=== PATIENT | male | born 1960 | race Caucasian/White ===

== ENCOUNTER 2017-11-09 10:48 | Emergency (ER) | payer OTHER ==
--- NOTE | 2017-11-09 12:08 | RAD ---
Indication: Left leg edema. Duplex Doppler sonography of the deep venous system of the left lower extremity deep venous system was performed. Bilaterally the common femoral veins appear patent and compressible. Left proximal greater saphenous vein, proximal deep femoral vein, femoral vein, popliteal vein, posterior tibial veins and peroneal veins appear patent and compressible.Limited evaluation of peroneal veins IMPRESSION: NO EVIDENCE OF DEEP VENOUS THROMBOSIS IS IDENTIFIED.
--- NOTE | 2017-11-09 12:13 | ED ---
Lower Extremity - HPI Summary HPI Summary: Patient is a 57-year-old male who presents emergency department for redness, pain and swelling to his left leg 5 days. Pt. states that he noticed a small red area to his left medial ankle that progressively got larger. Patient states that redness, increasingly worse today. Past medical history obesity, alcohol use, smoking, high blood pressure. Patient notes that he has had chills and subjective fever. He denies nausea or vomiting. Symptoms are moderate in severity. Touching area makes symptoms worse. Nothing makes symptoms better. - History of Current Complaint Chief Complaint: EDSoftTissueLowExtr Stated Complaint: LT LEG SWELLING/REDNESS Time Seen by Provider: 11/09/17 12:12 Hx Obtained From: Patient Pain Intensity: 7 - Allergies/Home Medications Allergies/Adverse Reactions: Allergies Allergy/AdvReac Type Severity Reaction Status Date / Time Penicillins Allergy Unknown Verified 11/09/17 12:28 Reaction Details Home Medications: Home Medications Lisinopril TAB* [Prinivil TAB*] 5 mg PO DAILY 11/09/17 [History Confirmed ] PMH/Surg Hx/FS Hx/Imm Hx Previously Healthy: Yes Infectious Disease History: No Infectious Disease History: Denies: Traveled Outside the [place] in Last 30 Days - Social History Occupation: Employed Full-time Lives: With Family Review of Systems Positive: Chills Gastrointestinal: Negative Negative: Abdominal Pain, Vomiting, Diarrhea, Nausea Positive: Other - Redness, swelling and pain to left lower leg All Other Systems Reviewed And Are Negative: Yes Physical Exam Triage Information Reviewed: Yes Vital Signs On Initial Exam: Initial Vitals Temp Pulse Resp BP Pulse Ox 96.5 F 95 18 152/81 94 11/09/17 11:09 11/09/17 11:09 11/09/17 11:09 11/09/17 11:09 11/09/17 11:09 Vital Signs Reviewed: Yes Appearance: Positive: Well-Appearing - Patient sitting on bed in no acute distress. Talkative. Skin: Positive: Warm, Dry Head/Face: Positive: Normal Head/Face Inspection Eyes: Positive: Normal, EOMI Neck: Positive: Supple Respiratory/Lung Sounds: Positive: Clear to Auscultation, Breath Sounds Present Cardiovascular: Positive: Normal, RRR Musculoskeletal: Positive: Other - Extensive, diffuse erythema and warmth noted just at a right ankle extending below right knee. Small healing wound noted to the lateral aspect. No areas of induration or fluctuance. Good palpable pedal pulse. Neurological: Positive: Normal, CN Intact II-III Psychiatric: Positive: Affect/Mood Appropriate Diagnostics - Vital Signs Vital Signs Temp Pulse Resp BP Pulse Ox 11/09/17 11:09 96.5 F 95 18 152/81 94 - Laboratory Result Diagrams: 11/09/17 12:42 11/09/17 12:42 Lab Statement: Any lab studies that have been ordered have been reviewed, and results considered in the medical decision making process. Lower Extremity Course/Dx - Course Course Of Treatment: Patient presenting with erythema and warmth to left lower extremity. He is afebrile with stable vital signs. Venous duplex is negative for DVT or acute findings, reading per radiology. Given extent of cellulitis we 'll give a dose of IV Rocephin and obtain basic labs. CBC shows normal WBC. CMP unremarkable. CRP elevated. Results discussed with pt. Will attempt out pt. treat since VS are normal and labs look good. Keflex QID rx. Advised to Follow up in the [facility] clinic in 2-3 days. To elevate leg and apply warm compresses. To return to ER for increased redness, fever, vomiting or if concerned. Pt. understands and agrees with plan. - Diagnoses Differential Diagnosis/HQI/PQRI: Positive: Cellulitis, DVT Provider Diagnoses: Cellulitis Discharge - Sign-Out/Discharge Documenting (check all that apply): Patient Departure - Discharge Plan Condition: Good Disposition: HOME Prescriptions: Cephalexin CAP* [Keflex CAP*] 500 mg PO QID #40 cap Patient Education Materials: Cellulitis (ED) Referrals: [facility] [Outside] No Primary Care Phys,NOPCP [Primary Care Provider] - Additional Instructions: Schedule a follow up appointment with your PCP for recheck in 2-3 days Take antibiotic as directed Elevate leg and apply warm compresses Tylenol or Motrin for pain as directed Return to ER for increased redness, fever, vomiting or if concerned - Billing Disposition and Condition Condition: GOOD Disposition: Home
[2017-11-09] MEDS ORDERED: cefTRIAXone(*) 2 GM in NS 0.9% 100 ML* 100 ML IVPB ONE (12:32)
[2017-11-09 12:49] LABS: ABS Basophils 0.1 10^3/ul (0-0.2); ABS Eosinophils 0.1 10^3/ul (0-0.6); ABS Lymphocytes 1.1 10^3/ul (1.0-4.8); ABS Monocytes 1.1 10^3/ul (0-0.8); ABS Neutrophils 7.9 10^3/ul (1.5-7.7); ABS Nucleated RBC 0.1 10^3/ul; Eosinophil % 1.3 % (0-6); Hematocrit 43 % (42-52); Hemoglobin 14.9 g/dl (14.0-18.0); Lymphocyte % 10.4 % (25-47); Mean Corpuscular HGB Conc 35 g/dl (31-36); Mean Corpuscular Hemoglobin 31 pg (27-31); Mean Corpuscular Volume 88 fL (80-94); Mean Platelet Volume 7.7 um3 (7.4-10.4); Nucleated Red Blood Cells % 0.6; Platelet Count 184 10^3/ul (150-450); Red Blood Count 4.88 10^6/ul (4.00-5.40); Red Cell Distribution Width 14 % (10.5-15); White Blood Count 10.2 10^3/ul (3.5-10.8)
[2017-11-09 13:19] LABS: EGFR Non-African American 104.9 (>60)
[2017-11-09 14:07] VITALS: BP 130/78
== END 2017-11-09 14:06 | disposition home or self-care (01) ==
LOC: ED 10:48
DX: L03.116 Cellulitis of left lower limb (principal); R22.42 Localized swelling, mass and lump, left lower limb; E66.9 Obesity, unspecified; Z72.89 Other problems related to lifestyle; Z88.0 Allergy status to penicillin
CPT/HCPCS: 36415; 80053; 85025; 86140; 96374; 99282; J0696

== ENCOUNTER 2018-08-28 09:15 | Emergency (ER) | payer BC, OTHER ==
--- NOTE | 2018-08-28 10:00 | ED ---
Lower Extremity - HPI Summary HPI Summary: A 58 y/o male presents to [facility] with a chief complaint of possible cellulitis to his left lower leg since the afternoon of 08/26/18. He reports a Hx of the same 10 months ago. He says that there is a little pain and swelling, rating his pain as a 4/10 in severity. He denies any fevers, chills or SOB. He denies a Hx of DM, or HLD. He had colon cancer 10 years ago and is in remission. He has a Hx of HTN and is on medications. He reports some smoking and alcohol use. His FHx if unknown because he is adopted. - History of Current Complaint Chief Complaint: EDExtremityLower Stated Complaint: POSS CELLULITES-PER PATIENT Time Seen by Provider: 08/28/18 09:49 Hx Obtained From: Patient Mechanism Of Injury: Unknown Onset of Pain: Days Onset/Duration: Days Severity Initially: Moderate Severity Currently: Moderate Pain Intensity: 4 Pain Scale Used: 0-10 Numeric Timing: Constant Location: Is Discrete @ - Lower left lower extremity Character Of Pain: Unable To Describe Associated Signs And Symptoms: Positive: Swelling, Redness. Negative: Fever Aggravating Factor(s): Nothing Alleviating Factor(s): Nothing - Allergies/Home Medications Allergies/Adverse Reactions: Allergies Allergy/AdvReac Type Severity Reaction Status Date / Time Penicillins Allergy Unknown Verified 08/28/18 09:21 Reaction Details PMH/Surg Hx/FS Hx/Imm Hx Endocrine/Hematology History: Denies: Hx Diabetes Cardiovascular History: Reports: Hx Hypertension Infectious Disease History: No Infectious Disease History: Denies: Traveled Outside the [place] in Last 30 Days - Family History Known Family History: Positive: Unknown - adopted - Social History Alcohol Use: Daily Substance Use Type: Reports: Marijuana Substance Use Comment - Amount & Last Used: used last wednesday Smoking Status (MU): Current Every Day Smoker Review of Systems Negative: Fever, Chills Negative: Shortness Of Breath Positive: Other - positive: lower LLE swelling and redness Positive: Other - positive: redness lower LLE All Other Systems Reviewed And Are Negative: Yes Physical Exam - Summary Physical Exam Summary: VITAL SIGNS: Reviewed. GENERAL: Patient is a well-developed and nourished MALE who is lying comfortable in the stretcher. Patient is not in any acute respiratory distress. HEAD AND FACE: No signs of trauma. No ecchymosis, hematomas or skull depressions. No sinus tenderness. EYES: PERRLA, EOMI x 2, No injected conjunctiva, no nystagmus. EARS: Hearing grossly intact. Ear canals and tympanic membranes are within normal limits. MOUTH: Oropharynx within normal limits. NECK: Supple, trachea is midline, no adenopathy, no JVD, no carotid bruit, no c- spine tenderness, neck with full ROM. CHEST: Symmetric, no tenderness at palpation. LUNGS: Clear to auscultation bilaterally. No wheezing or crackles. CVS: Regular rate and rhythm, S1 and S2 present, no murmurs or gallops appreciated. ABDOMEN: Soft, non-tender. No signs of distention. No rebound, no guarding, and no masses palpated. Bowel sounds are normal. EXTREMITIES: LLE swelling, erythema and increase in temperature from the knee down. NEURO: Alert and oriented x 3. No acute neurological deficits. Speech is normal and follows commands. SKIN: Dry and warm. Triage Information Reviewed: Yes Vital Signs On Initial Exam: Initial Vitals Temp Pulse Resp BP Pulse Ox 97.0 F 76 16 143/75 97 08/28/18 09:17 08/28/18 09:17 08/28/18 09:17 08/28/18 09:17 08/28/18 09:17 Vital Signs Reviewed: Yes Diagnostics - Vital Signs Vital Signs Temp Pulse Resp BP Pulse Ox 08/28/18 09:35 75 144/84 96 08/28/18 09:17 97.0 F 76 16 143/75 97 - Laboratory Result Diagrams: 08/28/18 10:17 08/28/18 10:17 Lab Statement: Any lab studies that have been ordered have been reviewed, and results considered in the medical decision making process. - Ultrasound No standard instances Ultrasound Interpretation Completed By: Radiologist Summary of Ultrasound Findings: Venous doppler study impression: NO LEFT LOWER EXTREMITY DEEP VEIN THROMBOSIS. ED physician has reviewed this imaging report. Lower Extremity Course/Dx - Course Assessment/Plan: A 58 y/o male presents to [facility] with a chief complaint of possible cellulitis to his left lower leg since the afternoon of 08/26/18. He reports a Hx of the same 10 months ago. He says that there is a little pain and swelling, rating his pain as a 4/10 in severity. He denies any fevers, chills or SOB. He denies a Hx of DM, or HLD. He had colon cancer 10 years ago and is in remission. He has a Hx of HTN and is on medications. He reports some smoking and alcohol use. His FHx if unknown because he is adopted. Blood test results without any significant abnormality except for platelet count 249, ESR is 45, sodium 133, chloride 99, glucose 113, uric acid 7.8, CRP is 169. Lower extremity ultrasound impression: No left lower extremity deep vein thrombosis. In the ED course and the patient was given IV fluids and Rocephin for the cellulitis. At this time the patient is feeling better therefore the patient will be discharged home with follow-up with primary care physician. The patient will be given a prescription for Bactrim for 10 days. He was given instructions to return to the emergency department if the symptoms worsen. The patient understands and agrees. He is hemodynamically stable alert and oriented 3. - Diagnoses Provider Diagnoses: Cellulitis Discharge - Sign-Out/Discharge Documenting (check all that apply): Patient Departure - DC Patient Received Moderate/Deep Sedation with Procedure: No - Discharge Plan Condition: Stable Disposition: HOME Prescriptions: Cephalexin CAP* [Keflex CAP*] 500 mg PO QID #10 cap Patient Education Materials: Cellulitis (DC) Referrals: [facility] [Outside] (2-3 days) Additional Instructions: FOLLOW UP WITH YOUR PRIMARY CARE PROVIDER WITHIN 2-3 DAYS. RETURN TO THE ED FOR ANY WORSENING OR NEW SYMPTOMS. - Billing Disposition and Condition Condition: STABLE Disposition: Home - Attestation Statements Document Initiated by Chanell: Yes Documenting Scribe: Matt Jade Provider For Whom Chanell is Documenting (Include Credential): Bogdan Freeman MD Scribe Attestation: IMatt scribed for Bogdan Freeman MD on 08/29/18 at 2020. Scribe Documentation Reviewed: Yes Provider Attestation: The documentation as recorded by the Matt lucio accurately reflects the service I personally performed and the decisions made by me, Bogdan Freeman MD Status of Scribe Document: Viewed
[2018-08-28] MEDS ORDERED: cefTRIAXone(*) 1 GM in NS 0.9% 50 ML* 50 ML IVPB ONE (10:10)
[2018-08-28] MEDS ORDERED: cefTRIAXone(*) 1 GM ADVAN/BAG ONE (10:19)
[2018-08-28 10:35] LABS: Hematocrit 42 % (42-52); Hemoglobin 14.4 g/dL (14.0-18.0); Mean Corpuscular HGB Conc 34 g/dL (31-36); Mean Corpuscular Hemoglobin 31 pg (27-31); Mean Corpuscular Volume 89 fL (80-94); Platelet Count 149 10^3/uL (150-450); Red Blood Count 4.71 10^6 /uL (4.18-5.48); Red Cell Distribution Width 14 % (10-15); White Blood Count 8.7 10^3/uL (3.5-10.8)
[2018-08-28 10:46] LABS: Albumin 3.7 g/dL (3.2-5.2); Albumin/Globulin Ratio 1.2 (1-3); BUN/Creatinine Ratio 17.2 (8-20); C Reactive Protein 159.66 mg/L (<8.01); Calcium 8.8 mg/dL (8.6-10.3); EGFR African American 109.8 (>60); EGFR Non-African American 90.8 (>60); Globulin 3.1 g/dL (2-4); Potassium 3.9 mmol/L (3.5-5.0); Total Bilirubin 0.5 mg/dL (0.2-1.0); Total Protein 6.8 g/dL (6.4-8.9); Uric Acid 7.8 mg/dL (4.4-7.6)
[2018-08-28 10:55] LABS: ABS Basophils 0.1 10^3/ul (0-0.2); ABS Eosinophils 0.2 10^3/ul (0-0.6); ABS Lymphocytes 1.1 10^3/ul (1.0-4.8); ABS Monocytes 1.1 10^3/ul (0-0.8); ABS Neutrophils 6.3 10^3/ul (1.5-7.7); Lymphocyte % 12.1 %; Nucleated Red Blood Cells % 0.1
[2018-08-28 11:41] LABS: Erythrocyte Sed Rate 45 mm/Hr (0-19)
[2018-08-28 12:54] VITALS: BP 107/57
== END 2018-08-28 13:06 | disposition home or self-care (01) ==
LOC: ED 09:15
DX: L03.116 Cellulitis of left lower limb (principal); R60.0 Localized edema; Z88.0 Allergy status to penicillin; F17.210 Nicotine dependence, cigarettes, uncomplicated; Z85.038 Personal history of other malignant neoplasm of large intestine
CPT/HCPCS: 36415; 80053; 83605; 84550; 85025; 85060; 85652; 86140; 96374; 99283; J0696

== ENCOUNTER 2018-11-16 14:13 | Inpatient (IN) | payer BC ==
[2018-11-16 15:49] LABS: ABS Eosinophils 0.1 10^3/ul (0-0.6); ABS Lymphocytes 1.1 10^3/ul (1.0-4.8); ABS Monocytes 1.1 10^3/ul (0-0.8); ABS Neutrophils 8.7 10^3/ul (1.5-7.7); Eosinophil % 1.3 %; Hematocrit 49 % (42-52); Hemoglobin 16.8 g/dL (14.0-18.0); Lymphocyte % 9.9 %; Mean Corpuscular HGB Conc 34 g/dL (31-36); Mean Corpuscular Hemoglobin 31 pg (27-31); Mean Corpuscular Volume 90 fL (80-94); Mean Platelet Volume 7.8 fL (7.4-10.4); Nucleated Red Blood Cells % 0.2; Platelet Count 185 10^3/uL (150-450); Red Blood Count 5.48 10^6 /uL (4.18-5.48); Red Cell Distribution Width 14 % (10-15); White Blood Count 11.1 10^3/uL (3.5-10.8)
[2018-11-16 15:55] LABS: Albumin 4.6 g/dL (3.2-5.2); Calcium 9.5 mg/dL (8.6-10.3); Potassium 3.9 mmol/L (3.5-5.0); Total Bilirubin 0.6 mg/dL (0.2-1.0)
[2018-11-16 16:01] LABS: Albumin/Globulin Ratio 1.4 (1-3); BUN/Creatinine Ratio 16.3 (8-20); C Reactive Protein 126.95 mg/L (<8.01); EGFR African American 111.3 (>60); Globulin 3.3 g/dL (2-4); Total Protein 7.9 g/dL (6.4-8.9)
[2018-11-16] MEDS ORDERED: cefTRIAXone(*) 2 GM in NS 0.9% 100 ML* 100 ML IVPB ONE (16:52)
[2018-11-16] MEDS ORDERED: Acetaminophen TAB* 325 MG PO ONE (17:09)
--- NOTE | 2018-11-16 17:12 | ED ---
Lower Extremity - HPI Summary HPI Summary: Patient is a 58 y/o M w/ Hx of left leg cellulitis who presents to [facility] with complaints of left leg redness and pain. He states that Sx onset yesterday. He reports pain is at his calf area. He denies SOB but endorses fever and chills, which he reports onset eight hours before redness. Patient states that he had two prior episodes of cellulitis this year. He notes the present episode is mild compared to prior episodes. He has HTN which is controlled with medications. Patient denies Hx of diabetes and HLD. Patient uses tobacco, alcohol and marijuana. He is adopted and FMHx is unknown. Home medications and allergies are reviewed. - History of Current Complaint Chief Complaint: EDExtremityLower Stated Complaint: CELLULITES PER PT Time Seen by Provider: 11/16/18 16:14 Hx Obtained From: Patient Onset of Pain: Days Onset/Duration: Days Severity Currently: Moderate Pain Intensity: 5 Pain Scale Used: 0-10 Numeric Timing: Lasting Days Location: Is Discrete @ - LLE Associated Signs And Symptoms: Positive: Swelling, Redness, Fever, Other - calf pain - Allergies/Home Medications Allergies/Adverse Reactions: Allergies Allergy/AdvReac Type Severity Reaction Status Date / Time Penicillins Allergy Unknown Verified 08/28/18 09:21 Reaction Details Home Medications: Home Medications Hydrocodone/Acetaminophen [[place] 7.5-325 Tablet] 1 each PO TID 11/16/18 [ History Confirmed 11/16/18] Lisinopril/HCTZ 20/25(NF) [Zestoretic 20/25(NF)] 1 tab PO DAILY 11/16/18 [ History Confirmed 11/16/18] PMH/Surg Hx/FS Hx/Imm Hx Endocrine/Hematology History: Reports: Hx Diabetes Cardiovascular History: Reports: Hx Hypercholesterolemia, Hx Hypertension Infectious Disease History: No Infectious Disease History: Denies: Traveled Outside the [place] in Last 30 Days - Family History Known Family History: Positive: Unknown - adopted - Social History Alcohol Use: Daily Substance Use Type: Reports: Marijuana Substance Use Comment - Amount & Last Used: used last wednesday Smoking Status (MU): Current Every Day Smoker Review of Systems Positive: Fever, Chills Negative: Shortness Of Breath Musculoskeletal: Other - positive - left calf pain Skin: Other - positive - redness of LLE All Other Systems Reviewed And Are Negative: Yes Physical Exam - Summary Physical Exam Summary: VITAL SIGNS: Reviewed. GENERAL: Patient is a well-developed and obese male who is lying comfortable in the stretcher. Patient is not in any acute respiratory distress. HEAD AND FACE: No signs of trauma. No ecchymosis, hematomas or skull depressions. No sinus tenderness. EYES: PERRLA, EOMI x 2, No injected conjunctiva, no nystagmus. EARS: Hearing grossly intact. Ear canals and tympanic membranes are within normal limits. MOUTH: Oropharynx within normal limits. NECK: Supple, trachea is midline, no adenopathy, no JVD, no carotid bruit, no c- spine tenderness, neck with full ROM. CHEST: Symmetric, no tenderness at palpation. LUNGS: Clear to auscultation bilaterally. No wheezing or crackles. CVS: Regular rate and rhythm, S1 and S2 present, no murmurs or gallops appreciated. ABDOMEN: Soft, non-tender. No signs of distention. No rebound, no guarding, and no masses palpated. Bowel sounds are normal. EXTREMITIES: He has erythema of the LLE from knee downwards. Good pulses and cap refill noted. FROM in all major joints, no edema, no cyanosis or clubbing. NEURO: Alert and oriented x 3. No acute neurological deficits. Speech is normal and follows commands. SKIN: Dry and warm. Triage Information Reviewed: Yes Vital Signs On Initial Exam: Initial Vitals Temp Pulse Resp BP Pulse Ox 98.7 F 91 18 115/81 97 11/16/18 14:22 11/16/18 14:22 11/16/18 14:22 11/16/18 14:22 11/16/18 14:22 Vital Signs Reviewed: Yes Procedures - Sedation Patient Received Moderate/Deep Sedation with Procedure: No Diagnostics - Vital Signs Vital Signs Temp Pulse Resp BP Pulse Ox 11/16/18 14:22 98.7 F 91 18 115/81 97 - Laboratory Lab Results: Lab Results 11/16/18 11/16/18 11/16/18 Range/Units 15:35 15:35 15:35 WBC 11.1 H (3.5-10.8) 10^3/uL RBC 5.48 (4.18-5.48) 10^6 /uL Hgb 16.8 (14.0-18.0) g/dL Hct 49 (42-52) % MCV 90 (80-94) fL MCH 31 (27-31) pg MCHC 34 (31-36) g/dL RDW 14 (10-15) % Plt Count 185 (150-450) 10^3/uL MPV 7.8 (7.4-10.4) fL Neut % (Auto) 78.5 % Lymph % (Auto) 9.9 % [place] % (Auto) 10.0 % Eos % (Auto) 1.3 % Baso % (Auto) 0.3 % Absolute Neuts (auto) 8.7 H (1.5-7.7) 10^3/ul Absolute Lymphs (auto) 1.1 (1.0-4.8) 10^3/ul Absolute Monos (auto) 1.1 H (0-0.8) 10^3/ul Absolute Eos (auto) 0.1 (0-0.6) 10^3/ul Absolute Basos (auto) 0.0 (0-0.2) 10^3/ul Absolute Nucleated RBC 0.0 10^3/ul Nucleated RBC % 0.2 Sodium 129 L (135-145) mmol/L Potassium 3.9 (3.5-5.0) mmol/L Chloride 94 L (101-111) mmol/L Carbon Dioxide 25 (22-32) mmol/L Anion Gap 10 (2-11) mmol/L BUN 14 (6-24) mg/dL Creatinine 0.86 (0.67-1.17) mg/dL Est GFR ( Amer) 111.3 (>60) Est GFR (Non-Af Amer) 92.0 (>60) BUN/Creatinine Ratio 16.3 (8-20) Glucose 103 H (70-100) mg/dL Lactic Acid 2.8 H* (0.5-2.0) mmol/L Calcium 9.5 (8.6-10.3) mg/dL Total Bilirubin 0.60 (0.2-1.0) mg/dL AST 29 (13-39) U/L ALT 49 (7-52) U/L Alkaline Phosphatase 59 (34-104) U/L C-Reactive Protein 126.95 H (<8.01) mg/L Total Protein 7.9 (6.4-8.9) g/dL Albumin 4.6 (3.2-5.2) g/dL Globulin 3.3 (2-4) g/dL Albumin/Globulin Ratio 1.4 (1-3) Result Diagrams: 11/17/18 04:46 11/17/18 04:43 Lab Statement: Any lab studies that have been ordered have been reviewed, and results considered in the medical decision making process. Lower Extremity Course/Dx - Course Assessment/Plan: This patient is a 58-year-old male who presents to the emergency department with a chief complaint of having left lower extremity cellulitis, rigors and fever. Blood work without any significant abnormality except for WBCs of 11.1, a 0.7 absolute neutrophils. Sodium 129, chloride 94, glucose 103, lactic acid is 2.8, CRP 126.9. In the ED course we sent blood cultures. I believe that the patient has a left lower extremity cellulitis therefore he was started on Rocephin. The patient spiked a fever therefore he was given Tylenol for the fever. I order an ultrasound of the left lower extremity which is pending. At this time I discussed my physical exam and findings with Dr. Toribio from the hospitalist services who accepted the patient for admission. Patient is hemodynamically stable alert oriented 3. - Diagnoses Provider Diagnoses: Cellulitis of left leg - Physician Notifications Discussed Care Of Patient With: Rea Toribio Time Discussed With Above Provider: 17:07 Instructed by Provider To: Other - Patient's case was discussed with Dr. Toribio , Dr. Toribio accepts for admission Discharge ED - Sign-Out/Discharge Documenting (check all that apply): Patient Departure - admit All imaging exams completed and their final reports reviewed: No Studies - Discharge Plan Condition: Stable Disposition: ADMITTED TO [facility] - Billing Disposition and Condition Condition: STABLE Disposition: Admitted to [facility] - Attestation Statements Document Initiated by Scribe: Yes Documenting Scribe: REBECCA BO Provider For Whom Chanell is Documenting (Include Credential): ELIUD CLAY MD Scribe Attestation: REBECCA Garay, scribed for ELIUD CLAY MD on 11/18/18 at 1356. Scribe Documentation Reviewed: Yes Provider Attestation: The documentation as recorded by the ERBECCA lucio accurately reflects the service I personally performed and the decisions made by me, ELIUD CLAY MD Status of Scribe Document: Viewed
[2018-11-16] MEDS ORDERED: Docusate CAP* 100 MG PO PRN (17:24)
[2018-11-16] MEDS ORDERED: NS 0.9% 1000 ML** 1,000 ML IV SCH (17:30)
[2018-11-16] MEDS: NS 0.9% 1000 ML** 2,000 ML IV ONE ×2 (17:43→18:08)
[2018-11-16] MEDS ORDERED: Vancomycin(*) 2,000 MG in NS 0.9% 500 ML* 500 ML IVPB ONE (18:00)
[2018-11-16] MEDS ORDERED: Vancomycin per Pharmacy* NOTE FOLLOW UP SCH (18:00)
[2018-11-16] MEDS: oxyCODONE/Acetamin 5/325 MG* TAB PO PRN (19:33)
[2018-11-16] MEDS: Enoxaparin(*) 40 MG/0.4 ML SYR SUBCUT SCH (19:34)
--- NOTE | 2018-11-16 19:55 | HP ---
CC: Dr. Bansal, [place], [place] * ADMISSION HISTORY AND PHYSICAL: DATE OF ADMISSION: 11/16/18 ATTENDING FOR THIS ADMISSION: Dr. Rea Toribio.* (DICTATED BY NERY LEON NP) PRIMARY CARE PROVIDER: Dr. Bansal in [place], [place]. CHIEF COMPLAINT: Left lower extremity pain, fever, and rigors. HISTORY OF PRESENT ILLNESS: Mr. Reece is a very pleasant 58-year-old male patient with a past medical history of hypertension, who presents to the emergency department today with left lower extremity erythema, rigors, fever, and nausea. The patient states that he has had recurrent cellulitis of the left lower extremity. This is the third time this has happened since November of last year. This time, the patient does endorse that the nausea is worse and that his fever and rigors are more intense. He was concerned because this is a third episode. His symptoms began approximately 24 hours ago. He notes that the redness is not as bad as it was in August the last time this happened; however , he does state that he does overall feel worse. In the ED, the patient was given a dose of ceftriaxone and an ultrasound was ordered. Laboratories do show an elevated lactic acid and a leukocytosis with a fever of 101.1. For these reasons, we were requested to evaluate the patient for admission. PAST MEDICAL HISTORY: Significant for hypertension; obesity; 10 years ago, the patient was treated for colon cancer. PAST SURGICAL HISTORY: Surgery for his colon cancer with 7 months of chemotherapy, surgery for incarcerated hernia. HOME MEDICATIONS: 1. Tyrone 7.5/325 p.r.n. pain. 2. Lisinopril with hydrochlorothiazide 20/25 one tablet p.o. daily. ALLERGIES: To PENICILLIN. FAMILY HISTORY: Noncontributory. SOCIAL HISTORY: The patient is an active every day smoker 2 to 3 packs per week for many years. He states he quit on Wednesday. Alcohol intake is 7 to 12 drinks every 2 days. Also states that he decided to quit drinking on Wednesday. Denies any illicit drug use. His healthcare proxy is his sister, her name is Sultana Regalado, phone number [phone]. He is unmarried and has no children and does live by himself. REVIEW OF SYSTEMS: The patient endorses fever, chills, rigors, nausea. No vomiting. Denies any chest pain. No shortness of breath. No abdominal pain or diarrhea. No urinary complaints. No focal weakness. No arthralgias. He does state he has got pain in the left lower extremity with some heat and sensitivity to touch over the erythematous lesions on the lower leg. No further constitutional complaints. PHYSICAL EXAMINATION GENERAL: Reveals a well-appearing gentleman, in no acute distress. VITAL SIGNS: Blood pressure 139/78, respiratory rate 24, heart rate 90, O2 saturation 98% on room air with a temperature of 101.1. HEENT: The patient is atraumatic, normocephalic. PERRLA. Nonicteric sclerae. Oral mucosa is moist. Tongue is midline. NECK: Supple, nontender. No JVD noted. No carotid bruit auscultated. LUNGS: Clear bilaterally to auscultation with no wheezing, rhonchi, or rales. CARDIOVASCULAR: S1, S2 present. No murmurs, gallops, or rubs noted. Rate and rhythm are regular. ABDOMEN: Soft, nontender, nondistended, obese. Positive bowel sounds in all 4 quadrants. : Deferred. MUSCULOSKELETAL: There is no clubbing, no cyanosis, and no edema. Left lower extremity skin is erythematous, not overtly edematous. He does have patchy erythema noted throughout the calf and the anterior aspect of the mclaughlin and into the dorsal aspect of the left foot. There is warmth noted. He does have a distal pulse palpable on the dorsalis pedis. He has full range of motion. His skin in general is somewhat clammy, but otherwise his color is good. NEUROLOGIC: Exam is showing no focal deficits. PSYCHIATRIC: He is cooperative and appropriate. DIAGNOSTIC STUDIES/LAB DATA: WBCs 11.1, RBCs 5.48, hemoglobin 16.8, hematocrit 49, platelets 185. Sodium 129, potassium 3.9, chloride 94, CO2 of 25 , BUN 14, creatinine 0.86, GFR 92, glucose 103, lactic acid 2.8, calcium 9.5. Bilirubin 0.60, AST 29, ALT 49, alk phos 59. CRP 126.95. Total protein 7.9, albumin 4.6, globulin 3.3, albumin/globulin ratio 1.4. Imaging: Ultrasound of the left lower extremity to rule out DVT is pending. IMPRESSION AND PLAN: Mr. Hofecker is a 58-year-old male with recurrent cellulitis of the left lower extremity, who presents now with cellulitis again and symptoms of sepsis. 1. Left lower extremity recurrent cellulitis. The patient has been given ceftriaxone in the ED; however, upon evaluating the reports from previous visits , he has been given ceftriaxone each time he has come to the emergency department. At this time, I think we can say that his recurrent cellulitis is not responding to ceftriaxone. We will broaden him to vancomycin. Blood cultures have already been drawn. We will follow his cultures. He does not have any open wounds that we can culture. We will continue to monitor the margins that have been marked and continue to evaluate his skin daily. 2. Sepsis. The patient is meeting sepsis criteria. He does have a leukocytosis. He is also febrile and has a lactic acid of 2.8 and his source is left lower extremity cellulitis. He does not appear, however, to have any end organ dysfunction. He is not hypotensive and not tachycardic. Also, based on his BMI, because the patient is 340 pounds, a sepsis bolus would be nearly 5 L of fluid. Because the patient does have by his own admission some peripheral vascular issues and is prone to edema, I do not feel like giving the patient 5 L of fluid is really necessary; however, he has been sweating quite a bit with his fevers, so we will bolus him with 2 L of fluid, reassess his lactic acid after the bolus is complete and continue him on maintenance at 75 mL per hour. If his lactic acid is on the rise, then we will reassess his need for a fluid bolus at that time and again continue to monitor cultures and continue him on broad-spectrum antibiotic with vancomycin to cover him for staph. 3. History of hypertension. He is currently normotensive. He will be continued on his home medications. 4. History of tobacco use and alcohol use. The patient by his own admission has stopped smoking on Wednesday, does not request nicotine replacement and quit drinking alcohol also on Wednesday. He does not appear to be withdrawing from alcohol at this time, so I do not feel that he needs a WAM protocol; however, we will continue to monitor him as we feel this is necessary and this is something that should be added. The patient was very khanh and honest about his intake. I do not feel that the patient is at risk at this time. 5. Hyponatremia. Because the patient is slightly volume depleted from his fevers that is likely the cause of his low sodium, he is getting fluid bolused at this time and we will monitor his daily labs. 6. Diet: He can have a regular unrestricted diet. 7. Code status: He is a full code. 8. DVT prophylaxis will be with Lovenox. 9. Disposition: The patient has been admitted to inpatient for IV antibiotics for recurrent cellulitis and sepsis. This plan of care has been discussed with Dr. Rea Toribio, the attending on this case, and she is in agreement with the plan of care. TIME SPENT: Sixty minutes on admission planning, 50% of which has been spent face- to-face with the patient, on physical examination, and developing plan of care. NERY LEON NP [id number]/[facility] #: [id number] ERIN
[2018-11-17] MEDS ORDERED: Vancomycin(*) 1,000 MG in NS 0.9% 250 ML* 250 ML IVPB SCH (02:30)
[2018-11-17] MEDS: oxyCODONE/Acetamin 5/325 MG* TAB PO PRN ×4 (02:36→23:07)
[2018-11-17] MEDS: Vancomycin(*) 1,000 MG in NS 0.9% 250 ML* 250 ML IVPB SCH ×4 (02:36→21:02)
[2018-11-17] MEDS: Acetaminophen TAB* 325 MG PO PRN ×3 (02:43→22:14)
[2018-11-17 05:28] LABS: ABS Eosinophils 0.1 10^3/ul (0-0.6); ABS Lymphocytes 1.2 10^3/ul (1.0-4.8); ABS Monocytes 1.2 10^3/ul (0-0.8); ABS Neutrophils 7.5 10^3/ul (1.5-7.7); Eosinophil % 0.9 %; Hematocrit 40 % (42-52); Hemoglobin 14.2 g/dL (14.0-18.0); Lymphocyte % 11.8 %; Mean Corpuscular HGB Conc 36 g/dL (31-36); Mean Corpuscular Hemoglobin 31 pg (27-31); Mean Corpuscular Volume 88 fL (80-94); Mean Platelet Volume 8.2 fL (7.4-10.4); Nucleated Red Blood Cells % 0.1; Platelet Count 152 10^3/uL (150-450); Red Blood Count 4.56 10^6 /uL (4.18-5.48); Red Cell Distribution Width 14 % (10-15); White Blood Count 9.9 10^3/uL (3.5-10.8)
[2018-11-17 05:38] LABS: BUN/Creatinine Ratio 13.6 (8-20); Calcium 8.5 mg/dL (8.6-10.3); EGFR African American 90.4 (>60); EGFR Non-African American 74.7 (>60); Potassium 3.5 mmol/L (3.5-5.0)
[2018-11-17] MEDS: Lisinopril TAB* 10 MG PO SCH (08:04)
[2018-11-17] MEDS: Hydrochlorothiazide TAB* 25 MG PO SCH (08:04)
--- NOTE | 2018-11-17 13:27 | PN ---
Subjective Date of Service: 11/17/18 Interval History: Patient seen and examined. States he was "soaked" after fever broke overnight. Erythema moving past marking on affected side. T-max 102 overnight. Denies SOB, still had some chills and rigors with fever. Patient states he wants to go home. Explained that he is not medically stable for discharge, and that it would not be prudent for him to leave AMA. Explained in detail the benefits of IV atbx and waiting on blood cultures and concern for bacteremia given high fevers. Patient seems amenable to staying inpatient at this time. Objective Active Medications: Acetaminophen (Tylenol Tab*) 650 mg PO Q4H PRN PRN Reason: MILD PAIN or TEMP > 100.4 Last Admin: 11/17/18 10:32 Dose: 650 mg Docusate Sodium (Colace Cap*) 100 mg PO BID PRN PRN Reason: CONSTIPATION Enoxaparin Sodium (Lovenox(*)) 40 mg SUBCUT Q24H [facility] Last Admin: 11/16/18 19:34 Dose: 40 mg Hydrochlorothiazide (Hydrodiuril Tab*) 25 mg PO DAILY [facility] Last Admin: 11/17/18 08:04 Dose: 25 mg Sodium Chloride (Ns 0.9% 1000 Ml) 1,000 mls @ 75 mls/hr IV PER RATE [facility] Vancomycin HCl 1,000 mg/ (Sodium Chloride) 250 mls @ 166.667 mls/hr IVPB Q6H [facility] Last Admin: 11/17/18 08:04 Dose: 166.667 mls/hr Lisinopril (Prinivil Tab*) 20 mg PO DAILY [facility] Last Admin: 11/17/18 08:04 Dose: 20 mg Oxycodone/Acetaminophen (Percocet 5/325 Tab*) 1 tab PO Q6H PRN PRN Reason: PAIN - MODERATE Last Admin: 11/17/18 10:34 Dose: 1 tab Pharmacy Consult (Vancomycin Per Pharmacy*) 1 note FOLLOW UP .VANC PER PHARMACY [facility]; Protocol Pharmacy Profile Note (Vancomycin Trough Check) 1 note FOLLOW UP 1999 Stop: 11/17/18 20:01 Vital Signs - 8 hr 11/17/18 11/17/18 11/17/18 07:11 07:15 08:00 Temperature 98.9 F Pulse Rate 79 Respiratory 16 18 18 Rate Blood Pressure 133/81 (mmHg) O2 Sat by Pulse 96 Oximetry 11/17/18 11/17/18 11/17/18 10:34 11:34 12:41 Temperature 98.7 F Pulse Rate 72 Respiratory 20 16 16 Rate Blood Pressure 134/62 (mmHg) O2 Sat by Pulse 98 Oximetry Oxygen Devices in Use Now: None Appearance: alert, NAD Eyes: No Scleral Icterus, PERRLA Ears/Nose/Mouth/Throat: NL Teeth, Lips, Gums, Mucous Membranes Moist Neck: NL Appearance and Movements; NL JVP, Trachea Midline Respiratory: Symmetrical Chest Expansion and Respiratory Effort, Clear to Auscultation Cardiovascular: NL Sounds; No Murmurs; No JVD, RRR Abdominal: NL Sounds; No Tenderness; No Distention, - - obese Extremities: - - LLE with increased erythema beyond margins, increased warmth and some edema Nutrition: Taking PO's Result Diagrams: 11/17/18 04:46 11/17/18 04:43 Additional Lab and Data: Lab Results 11/16/18 11/16/18 11/16/18 Range/Units 15:35 15:35 15:35 WBC 11.1 H (3.5-10.8) 10^3/uL RBC 5.48 (4.18-5.48) 10^6 /uL Hgb 16.8 (14.0-18.0) g/dL Hct 49 (42-52) % MCV 90 (80-94) fL MCH 31 (27-31) pg MCHC 34 (31-36) g/dL RDW 14 (10-15) % Plt Count 185 (150-450) 10^3/uL MPV 7.8 (7.4-10.4) fL Neut % (Auto) 78.5 % Lymph % (Auto) 9.9 % Rains % (Auto) 10.0 % Eos % (Auto) 1.3 % Baso % (Auto) 0.3 % Absolute Neuts (auto) 8.7 H (1.5-7.7) 10^3/ul Absolute Lymphs (auto) 1.1 (1.0-4.8) 10^3/ul Absolute Monos (auto) 1.1 H (0-0.8) 10^3/ul Absolute Eos (auto) 0.1 (0-0.6) 10^3/ul Absolute Basos (auto) 0.0 (0-0.2) 10^3/ul Absolute Nucleated RBC 0.0 10^3/ul Nucleated RBC % 0.2 Sodium 129 L (135-145) mmol/L Potassium 3.9 (3.5-5.0) mmol/L Chloride 94 L (101-111) mmol/L Carbon Dioxide 25 (22-32) mmol/L Anion Gap 10 (2-11) mmol/L BUN 14 (6-24) mg/dL Creatinine 0.86 (0.67-1.17) mg/dL Est GFR ( Amer) 111.3 (>60) Est GFR (Non-Af Amer) 92.0 (>60) BUN/Creatinine Ratio 16.3 (8-20) Glucose 103 H (70-100) mg/dL Lactic Acid 2.8 H* (0.5-2.0) mmol/L Calcium 9.5 (8.6-10.3) mg/dL Total Bilirubin 0.60 (0.2-1.0) mg/dL AST 29 (13-39) U/L ALT 49 (7-52) U/L Alkaline Phosphatase 59 (34-104) U/L C-Reactive Protein 126.95 H (<8.01) mg/L Total Protein 7.9 (6.4-8.9) g/dL Albumin 4.6 (3.2-5.2) g/dL Globulin 3.3 (2-4) g/dL Albumin/Globulin Ratio 1.4 (1-3) Diagnostic Imaging: Patient Name: CRIS LINO Medical Record#: [id number] Ordering Physician: Bogdan Freeman MD Acct.#: [id number] : 1960 Age: 58 Sex: M Location: [address] [place] [address] MEDICAL Exam Date: 11/16/181707 ADM Status: ADM IN Order Information: VL LOWER EXT VEINS LEFT Accession Number: [id number] CPT: 29997 PROCEDURE INFORMATION: Exam: US Duplex Left Lower Extremity Veins, Limited Exam date and time: 11/16/2018 6:03 PM Clinical history: 58 years old, male; Condition or disease; Other: Cellulitis; Additional info: Calf pain and erythema TECHNIQUE: Imaging protocol: Real-time Duplex ultrasound of the Left Lower Extremity with 2-D hardin scale, color Doppler flow and spectral waveform analysis with image documentation. Limited exam focused on the left lower extremity veins. COMPARISON: US LE VEIN L VL LOWER EXT VEINS LEFT 08/28/2018 11:04 AM FINDINGS: Left deep veins: Unremarkable. The common femoral, femoral, proximal profunda femoral and popliteal veins are patent without thrombus. Normal Doppler waveforms. Normal compressibility and/or augmentation response. Left superficial veins: Unremarkable. Saphenofemoral junction is patent without thrombus. Soft tissues: Unremarkable. IMPRESSION: No evidence of DVT in the left leg. To contact [facility] with a general question: Operations Center - [phone] For direct physician to physician contact: Physician Hotline - [phone] [facility] ([facility] Facility ID #[id number]) Assess/Plan/Problems-Billing Assessment: This is a 58 year old male with history of recurrent cellulitis of the LLE, admitted for same. - Patient Problems (1) Cellulitis of left lower extremity Code(s): L03.116 - CELLULITIS OF LEFT LOWER LIMB SNOMED Code(s): 541716948 Comment: - Broadened coverage with vancomycin given PCN allergy and previous treatment with ceftriaxone and multiple re-occurances on the same side - Monitor skin, no break down noted (2) Sepsis Comment: - LA down to 0.9 from 2.8 after IVF - Continue vancomycin - Still having fevers, T max 102 overnight, continue tylenol PRN - Follow blood cultures (3) MONA on CPAP Code(s): G47.33 - OBSTRUCTIVE SLEEP APNEA (ADULT) (PEDIATRIC); Z99.89 - DEPENDENCE ON OTHER ENABLING MACHINES AND DEVICES SNOMED Code(s): 33565323 Comment: - Using hospital equipment at night and tolerating (4) HTN (hypertension) Code(s): I10 - ESSENTIAL (PRIMARY) HYPERTENSION SNOMED Code(s): 94115618 Comment: - continue lisinopril and HCTZ - BP stable (5) DVT prophylaxis Code(s): Z29.9 - ENCOUNTER FOR PROPHYLACTIC MEASURES, UNSPECIFIED SNOMED Code( s): 395943185 Comment: - Lovenox (6) Full code status Code(s): Z78.9 - OTHER SPECIFIED HEALTH STATUS SNOMED Code(s): 502779043 Status and Disposition: Inpatient for IV atbx.
[2018-11-17] MEDS: Enoxaparin(*) 40 MG/0.4 ML SYR SUBCUT SCH (19:59)
[2018-11-17] MEDS ORDERED: Vancomycin Trough Check NOTE FOLLOW UP ONE (20:00)
[2018-11-18] MEDS: Vancomycin(*) 1,000 MG in NS 0.9% 250 ML* 250 ML IVPB SCH ×2 (01:59→09:04)
[2018-11-18] MEDS: oxyCODONE/Acetamin 5/325 MG* TAB PO PRN (06:51)
[2018-11-18] MEDS: Hydrochlorothiazide TAB* 25 MG PO SCH (09:04)
[2018-11-18] MEDS: Lisinopril TAB* 10 MG PO SCH (09:04)
[2018-11-18 11:51] VITALS: BP 136/78
--- NOTE | 2018-11-20 22:01 | DS ---
CC: Dr. Jeny Bansal * DISCHARGE SUMMARY: DATE OF ADMISSION: 11/16/18 DATE OF DISCHARGE: 11/18/18 PRIMARY CARE PROVIDER: Jeny Bansal MD in [place], [place]. MY ATTENDING FOR THIS DISCHARGE: Clementine Jacques DO * (DICTATED BY NERY LEON NP) HOSPITAL COURSE: Please refer to admitting H and P on date of admission; however, in short, Mr. Reece is a 58-year-old male patient with recurrent cellulitis in the left lower extremity. He came to the emergency department on the day of admission with complaint of rigors, chills, and increasing pain, redness, and swelling to the left lower extremity. He was ruled out for DVT by ultrasound on the left lower extremity and was diagnosed with recurrent cellulitis. According to his past treatment for this, this is his third time with cellulitis on the same side. Previously, he had been treated with ceftriaxone in the emergency department and sent home on oral antibiotics. At this time, the patient was meeting sepsis criteria, so he was admitted and kept on IV vancomycin because of his PENICILLIN allergy. The patient was initially resistant to being admitted; however, he did agree to stay for 2 days of IV vanco. On the day of discharge, the patient was essentially demanding to be discharged; however, the night before, he did have a conversation with the nurses that he was feeling quite depressed and there was some question of whether he had some passive suicidal ideation. He was referred to social work for evaluation, who agreed to give him some followup services in the community. The patient told the nurses that he did not want to wait to have these services referral set up. When I saw the patient on 11/18/18, the patient became quite agitated stating that he would not stay to 4 o'clock for his referrals to be set up. When I explained to the patient that as soon as we could have a safe discharge plan, I would be agreeable to discharging him on doxycycline with outpatient social work services and mental health services. The patient began to get even more agitated and somewhat verbally abusive and raising his voice. Again, the patient demanded to be discharged. His IV was taken out and the patient left without signing his discharge paperwork. REVIEW OF SYSTEMS ON DAY OF DISCHARGE: Unreliable secondary to the patient's agitation. PHYSICAL EXAMINATION: I was unable to obtain a physical exam again secondary to the patient's agitation; however, the patient was in stable condition at the time of discharge. DISCHARGE DIAGNOSES: Recurrent left lower extremity cellulitis and sepsis. LABORATORY DATA: His laboratories on 11/17/18 were WBCs 9.9, RBCs 4.56, hemoglobin 14.2, hematocrit 40, platelets 152. Sodium 133, potassium 3.5, chloride 102, CO2 of 24, BUN 14, creatinine 1.03, GFR 74.7, glucose 134. Calcium 8.5. Lactic acid at admission was 2.8. Followup lactic was 0.9. IMAGING: Ultrasound of the left lower extremity was negative for DVT. FOLLOWUP: He was instructed to follow up with his primary care provider. I did offer him again followup services with [facility] and social work did discuss [facility] with him. The appointment with [facility] was not set up before he left. There is a possibility that, that referral was still made with social work. They may be calling him as an outpatient. It is unclear whether the patient will be following up with this. DISCHARGE MEDICATIONS: Include: 1. [place] 1 tab p.o. 3 times a day, this is a home medication. 2. Lisinopril and hydrochlorothiazide 20/25 one tablet p.o. daily. 3. Doxycycline 100 mg p.o. b.i.d. for 8 days. Again, the patient was discharged in stable condition. I did relay to the patient the importance of him completing his antibiotics and returning to the emergency department if he had any further changes in his skin, fevers, chills, or any further decompensation. TIME SPENT: 35 minutes. NERY LEON NP [id number]/[facility] #: [id number] ERIN
[2018-11-21] MEDS ORDERED: Vancomycin Trough Check NOTE FOLLOW UP ONE (08:00)
== END 2018-11-18 13:35 | disposition home or self-care (01) | DRG 720 ==
LOC: ED 14:13 → MED 17:24
PROVIDERS: ADMIT Internal Medicine; ATTEND Hospitalist
DX: A41.9 Sepsis, unspecified organism (principal); L03.116 Cellulitis of left lower limb; E87.1 Hypo-osmolality and hyponatremia; Z68.42 Body mass index [BMI] 45.0-49.9, adult; R45.1 Restlessness and agitation; F17.210 Nicotine dependence, cigarettes, uncomplicated; E11.9 Type 2 diabetes mellitus without complications; E78.00 Pure hypercholesterolemia, unspecified; G47.33 Obstructive sleep apnea (adult) (pediatric); F32.9 Major depressive disorder, single episode, unspecified; I10 Essential (primary) hypertension; E66.9 Obesity, unspecified; Z85.038 Personal history of other malignant neoplasm of large intestine; Z92.21 Personal history of antineoplastic chemotherapy; Z88.0 Allergy status to penicillin; Z90.49 Acquired absence of other specified parts of digestive tract; Z72.89 Other problems related to lifestyle
CPT/HCPCS: 36415; 80048; 80053; 80202; 83605; 85025; 86140; 87040; 94660; 96365; 96372; 99284; 99406; A9270-GY; J0696; J1650; J3370

== ENCOUNTER 2023-06-15 08:30 | Observation (INO) ==
[2023-06-15 09:40] LABS: ABS Eosinophils 0.3 10^3/uL (0.0-0.5); ABS Monocytes 1.1 10^3/uL (0.0-1.1); ABS Neutrophils 3.1 10^3/uL (1.5-7.6); ABS Nucleated RBC 0.01 10^3/ul; Eosinophil % 4.6 %; Hematocrit 47.2 % (38-53); Hemoglobin 16.4 g/dL (13.2-16.3); Lymphocyte % 30.8 %; Mean Corpuscular Hemoglobin 30.3 pg (27-33); Mean Corpuscular Hgb Conc 34.7 g/dL (31-36); Mean Corpuscular Volume 87.5 fL (80-97); Nucleated Red Blood Cells % 0.2 %/100WBC (0.0-0.8); Platelet Count 213 10^3/uL (150-450); Red Cell Distribution Width 14.3 % (12-17); White Blood Count 6.6 10^3/uL (3.6-10.2)
[2023-06-15 09:46] LABS: INR 1.08 (0.83-1.13)
[2023-06-15 10:15] LABS: Albumin 4.2 g/dL (3.2-5.2); Albumin/Globulin Ratio 1.4 (1-3); Calcium 9.3 mg/dL (8.6-10.3); Creatinine, Serum 0.8 mg/dL (0.67-1.17); HDL Cholesterol 52.1 mg/dL; Potassium 4.3 mmol/L (3.5-5.0); Total Bilirubin 0.6 mg/dL (0.2-1.0); Total Protein 7.2 g/dL (6.4-8.9); eGFR CKD-EPI 101.3 (>60)
[2023-06-15 10:25] LABS: TSH Ultra Thyroid Stim Horm 3.4 mcIU/mL (0.34-5.60)
[2023-06-15 10:26] LABS: Free T4 0.97 ng/dL (0.61-1.12)
[2023-06-15 10:35] LABS: High Sensitivity Troponin 1 Hr 4 pg/mL (<20)
[2023-06-15 11:44] LABS: Magnesium 1.9 mg/dL (1.9-2.7)
[2023-06-15] MEDS ORDERED: Sulfur Hexaflouride MICROSPHR 25 MG VIAL ONE (16:24)
[2023-06-15] MEDS ORDERED: Lisinopril/HCTZ 20/25 TAB (NF) PO SCH (18:00)
[2023-06-15] MEDS ORDERED: Senna TAB 8.6 mg TAB PO PRN (20:02)
[2023-06-15] MEDS: Enoxaparin 40 MG/0.4 ML SYR SUBCUT SCH (22:18)
[2023-06-15] MEDS ORDERED: Benzocaine/Menthol LOZ PO PRN (22:36)
[2023-06-16 07:27] LABS: ABS Basophils 0.1 10^3/uL (0.0-0.1); ABS Eosinophils 0.4 10^3/uL (0.0-0.5); ABS Monocytes 0.7 10^3/uL (0.0-1.1); ABS Nucleated RBC 0.02 10^3/ul; Eosinophil % 5.9 %; Lymphocyte % 33.1 %; Mean Corpuscular Hemoglobin 30.3 pg (27-33); Mean Corpuscular Hgb Conc 34.6 g/dL (31-36); Mean Corpuscular Volume 87.5 fL (80-97); Mean Platelet Volume 7.7 fL (7.5-11.2); Nucleated Red Blood Cells % 0.4 %/100WBC (0.0-0.8); Platelet Count 215 10^3/uL (150-450); Red Cell Distribution Width 14.6 % (12-17); White Blood Count 6.1 10^3/uL (3.6-10.2)
[2023-06-16 07:47] LABS: Calcium 9.7 mg/dL (8.6-10.3); Creatinine, Serum 0.72 mg/dL (0.67-1.17); Potassium 4.5 mmol/L (3.5-5.0); eGFR CKD-EPI 104.6 (>60)
[2023-06-16] MEDS ORDERED: Regadenoson 0.4 MG/5 ML SYRINGE ONE (08:35)
[2023-06-16] MEDS ORDERED: Aminophylline 25 MG/ML VIAL ONE (08:35)
[2023-06-16 14:04] VITALS: BP 115/78
[2023-06-17 10:12] LABS: Anaplasma phagocytophilum Negative (Negative); B. miyamotoi PCR, B Negative (Negative); Babesia divergens/MO-1 Negative (Negative); Babesia ducani Negative (Negative); Ehrlichia chaffeensis Negative (Negative); Ehrlichia ewingii/canis Negative (Negative); Ehrlichia muris eauclairensis Negative (Negative)
== END 2023-06-16 18:45 | disposition home or self-care (01) ==
LOC: ED 08:30 → EDHOLD 08:30 → SUATTDRO 16:31 → MED 19:42
PROVIDERS: ADMIT Internal Medicine; ATTEND Internal Medicine